=== PATIENT | male | born 1955 | race Caucasian/White ===

== ENCOUNTER 2017-02-15 21:41 | Emergency (ER) | payer OTHER ==
[~2017-02-15] VITALS: Ht 177.8 cm; Wt 72.5 kg
[~2017-02-15 21:41] MED LIST: HYDR-3720 PO; LAMI1TAB2 PO; [UNRECOGNIZED DRUG - CODE] PO
[2017-02-15 21:55] VITALS: Ht 177.8 cm; Wt 72.5 kg
[2017-02-15] MEDS ORDERED: DIPHTH/TET/ACEL PERTUSS (ADULT) 0.5 ML VIAL IM* ONE (23:00)
[2017-02-15] MEDS ORDERED: CEFAZOLIN 1 GM INJ IM ONE (23:00)
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
--- NOTE | 2017-02-16 00:42 | RADRPT ---
PROCEDURE: XR Wrist. CLINICAL INDICATION: Right wrist pain. TECHNIQUE: AP, lateral, scaphoid and oblique views of the right wrist were performed. COMPARISON: No prior studies are available for comparison. FINDINGS: Reference marker is directed to the lateral aspect of the right wrist, without evident underlying ra diographic abnormality. No evidence of fracture, dislocation, or subluxation is seen. The bones appear well mineralized. The joint spaces are well preserved. The soft tissues appear intact. IMPRESSION: No acute fracture. RPTAT: [facility] Physician Ad Date Time Electronically viewed and signed by Physician Ad on 02/16/2017 00:42 RS/
[2017-02-16] MEDS ORDERED: CEPH-443 PO (01:00)
[2017-02-16] MEDS ORDERED: IBUP-1542 PO (01:00)
[2017-02-16 01:30] VITALS: BP 113/61; PULSE 78; RESP 16
== END 2017-02-16 01:31 | disposition home or self-care (01) ==
LOC: FTE 21:41
DX: S60.811A Abrasion of right wrist, initial encounter (principal); L08.9 Local infection of the skin and subcutaneous tissue, unspecified; S63.501A Unspecified sprain of right wrist, initial encounter; V18.4XXA Pedal cycle driver injured in noncollision transport accident in traffic accident, initial encounter; Z23 Encounter for immunization
CPT/HCPCS: 29125; 73110; 90471; 90715; 96372; 99284; J0690

== ENCOUNTER 2017-03-15 11:38 | Emergency (ER) | payer OTHER ==
[~2017-03-15] VITALS: Ht 177.8 cm; Wt 71.0 kg
[~2017-03-15 11:38] MED LIST changes: +CEPH-443 PO; +IBUP-1542 PO
[2017-03-15 11:41] VITALS: Ht 177.8 cm; Wt 71.0 kg
[2017-03-15] MEDS ORDERED: HYDROCODONE/APAP (5/325) TAB PO ONE (13:00)
--- NOTE | 2017-03-15 13:47 | RADRPT ---
PROCEDURE: XR right rib series. CLINICAL INDICATION: Right rib pain, injury. TECHNIQUE: Three views of the right rib cage are available for review COMPARISON: None available FINDINGS: No acute fracture or dislocation is seen. The joint spaces are maintained. The bony mineralization is normal. The soft tissues are unremarkable. No radiopaque foreign body is identified. The visualized portions of the underlying lung is clear. No pneumothorax identified. IMPRESSION: 1. Unremarkable right rib cage x-ray series. RPTAT: QQ .Jared Lara MD, MD Date Time Electronically viewed and signed by .Jared Lara MD, MD on 03/15/2017 13:46 .M/
--- NOTE | 2017-03-15 13:47 | RADRPT ---
PROCEDURE: XR Chest. CLINICAL INDICATION: Chest pain, injury TECHNIQUE: Anterior chest x-ray. COMPARISON: None. FINDINGS: The lungs are clear. No pleural effusion identified. There is no evidence of pneumothorax. The cardiomediastinal silhouette is unremarkable. The soft tissues are normal. Osseous structures are unremarkable. IMPRESSION: 1. No acute disease is seen in the chest. RPTAT: QQ .Jared Lara MD, MD Date Time Electronically viewed and signed by .Jared Lara MD, on 03/15/2017 13:47 .M/
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
[2017-03-15] MEDS ORDERED: NAPR-260 PO (13:54)
[2017-03-15] MEDS ORDERED: ACET500C5 PO (13:54)
== END 2017-03-15 14:15 | disposition home or self-care (01) ==
LOC: FTE 11:38
DX: R07.81 Pleurodynia (principal)
CPT/HCPCS: 71010; 71100

== ENCOUNTER 2017-03-26 09:18 | Emergency (ER) | payer OTHER ==
[~2017-03-26] VITALS: Ht 175.3 cm; Wt 70.0 kg
[~2017-03-26 09:18] MED LIST changes: +ACET500C5 PO; +NAPR-260 PO
[2017-03-26 09:21] VITALS: Ht 175.3 cm; Wt 70.0 kg
--- NOTE | 2017-03-26 09:37 | ERD ---
ER Documentation Chief Complaint Date/Time DATE: 03/26/17 TIME: 09:36 Chief Complaint left knee pain x 3 days HPI This is a 61-year-old male presents to the emergency room for evaluation of left -sided knee pain. The patient states he has had his knee pain for approximately 2 days duration. He states that 2 days ago he was praying for a prolonged period of time and was putting pressure on his left knee. The patient states that he started having some pain and swelling and states that he took Naprosyn and stated the pain and swelling had decreased however he came to the ER for evaluation. The patient denies any direct trauma to the knee and states that he is having no difficulty walking. The patient denies any fevers or chills associated with this knee pain ROS All systems reviewed and are negative except as per history of present illness. Medications Home Meds Active Scripts Acetaminophen* (Tylophen*) 500 Mg Capsule, 1 CAP PO Q6H Y for PAIN AND OR ELEVATED TEMP, #30 CAP Prov:YOU DOMINGUEZ PA-C 03/15/17 Naproxen* (Naprosyn*) 500 Mg Tablet, 500 MG PO BID Y for PAIN AND/OR INFLAMMATION, #30 TAB Prov:YOU DOMINGUEZ PA-C 03/15/17 Cephalexin* (Keflex*) 500 Mg Capsule, 500 MG PO QID for 5 Days, CAP Prov:RACHAEL BAKER TOPPIECE CHOPPER 02/16/17 Ibuprofen* (Motrin*) 600 Mg Tab, 600 MG PO Q6H Y for PAIN AND OR ELEVATED TEMP, #30 TAB Prov:RACHAEL BAKER TOPPIECE CHOPPER 02/16/17 Reported Medications Hydrocodone Bit-Acetaminophen* ([place]*) 7.5-325 Tablet, 1 TAB PO BID Y for PAIN , TAB 03/06/16 Nevirapine* (Viramune*) 200 Mg Tablet, 200 MG PO BID, TAB 03/06/16 Lamivudine-Zidovudine* (Combivir*) 150-300 Mg Tablet, 1 TAB PO BID, TAB 03/06/16 Allergies Allergies: Coded Allergies: No Known Allergy (Unverified , 03/06/16) PMhx/Soc History of Surgery: Yes (left hernia repair) Anesthesia Reaction: No Hx Neurological Disorder: No Hx Respiratory Disorders: No Hx Cardiac Disorders: No Hx Psychiatric Problems: No Hx Miscellaneous Medical Probl: Yes (hiv, rheumatoid arthritis , spinal stenosis) Hx Alcohol Use: No Hx Substance Use: No (clean 13 years) Hx Tobacco Use: No Physical Exam Vitals Vital Signs Date Time Temp Pulse Resp B/P Pulse Ox O2 Delivery O2 Flow Rate FiO2 03/26/17 09:21 98.3 64 18 133/98 100 Physical Exam Const: No acute distress Head: Atraumatic Eyes: Normal Conjunctiva ENT: Normal External Ears, Nose and Mouth. Neck: Full range of motion..~ No meningismus. Resp: Clear to auscultation bilaterally Cardio: Regular rate and rhythm, no murmurs Abd: Soft, non tender, non distended. Normal bowel sounds Skin: No petechiae or rashes Back: No midline or flank tenderness Ext: No swelling, no erythema no cyanosis, or edema Neur: Awake and alert Psych: Normal Mood and Affect Procedures/MDM This 61-year-old male presents to the ER for evaluation of left-sided knee pain. The patient was playing 2 days ago and states that he was playing for a prolonged period of time. I did not know any swelling in the knee. The patient is ambulating without difficulty, he has no fevers, my suspicion for septic arthritis is low. Patient was given Motrin in the emergency room and instructed to keep his leg elevated, and ice his knee. The patient did verbalize understanding. He is okay the plan of care and will be discharged home with a prescription for Motrin. Departure Diagnosis: Primary Impression: Knee pain Condition: Stable ERICKSON GUTHRIE DO March 26, 2017 09:37
[2017-03-26] MEDS ORDERED: IBUP800T25 PO (09:38)
[2017-03-26] MEDS ORDERED: IBUPROFEN 800 MG TAB PO ONE (10:00)
== END 2017-03-26 09:54 | disposition home or self-care (01) ==
LOC: FTE 09:18
DX: M25.562 Pain in left knee (principal)
CPT/HCPCS: 99283

== ENCOUNTER 2017-03-29 19:03 | Emergency (ER) | payer OTHER ==
[~2017-03-29] VITALS: Ht 175.3 cm; Wt 70.5 kg
[~2017-03-29 19:03] MED LIST changes: +IBUP800T25 PO
[2017-03-29 19:23] VITALS: Ht 175.3 cm; Wt 70.5 kg
[2017-03-29] MEDS ORDERED: SOD CHLORIDE 0.9% 1,000 ML IV STA (19:46)
[2017-03-29] MEDS ORDERED: ONDANSETRON 4 MG INJ IV STA (19:46)
[2017-03-29] MEDS ORDERED: morphine 2 MG INJ IV STA (19:46)
[2017-03-29 19:53] LABS: URINE BLOOD (Dip) POC Negative (NEGATIVE)
--- NOTE | 2017-03-29 20:05 | ERD ---
ER Documentation Chief Complaint Date/Time DATE: 03/29/17 TIME: 20:03 Chief Complaint knee pain and redness x2 days, dx with bursitis, HPI 61-year-old male presents to emergency department for complaints of left knee pain that started 3 days ago, patient was seen in the emergency department was diagnosed as bursitis, today, the pain got worse, redness and swelling spread into the lower extremity area right below the knee, described the pain on affected areas throbbing pain, 8/10 scale, worse upon touching the area, patient is able to move the knee without any induration. Patient denies any numbness or tingling. Patient denies any deformity. Patient denies any trauma on affected area. ROS All systems reviewed and are negative except as per history of present illness. Medications Home Meds Active Scripts Ibuprofen* (Motrin*) 800 Mg Tab, 800 MG PO Q6H Y for PAIN AND OR ELEVATED TEMP, #30 TAB Prov:ERICKSON GUTHRIE DO 03/26/17 Acetaminophen* (Tylophen*) 500 Mg Capsule, 1 CAP PO Q6H Y for PAIN AND OR ELEVATED TEMP, #30 CAP Prov:YOU DOMINGUEZ PA-C 03/15/17 Naproxen* (Naprosyn*) 500 Mg Tablet, 500 MG PO BID Y for PAIN AND/OR INFLAMMATION, #30 TAB Prov:YOU DOMINGUEZ PA-C 03/15/17 Cephalexin* (Keflex*) 500 Mg Capsule, 500 MG PO QID for 5 Days, CAP Prov:RACHAEL BAKER [employer]QUA [employer] OPERATOR 02/16/17 Ibuprofen* (Motrin*) 600 Mg Tab, 600 MG PO Q6H Y for PAIN AND OR ELEVATED TEMP, #30 TAB Prov:RACHAEL BAKER [employer] OPERATOR 02/16/17 Reported Medications Hydrocodone Bit-Acetaminophen* (Zavalla*) 7.5-325 Tablet, 1 TAB PO BID Y for PAIN , TAB 03/06/16 Nevirapine* (Viramune*) 200 Mg Tablet, 200 MG PO BID, TAB 03/06/16 Lamivudine-Zidovudine* (Combivir*) 150-300 Mg Tablet, 1 TAB PO BID, TAB 03/06/16 Allergies Allergies: Coded Allergies: No Known Allergy (Unverified , 03/06/16) PMhx/Soc History of Surgery: Yes (inguinal sx) Anesthesia Reaction: No Hx Neurological Disorder: No Hx Respiratory Disorders: No Hx Cardiac Disorders: No Hx Psychiatric Problems: No Hx Miscellaneous Medical Probl: Yes (HIV) Hx Alcohol Use: Yes Hx Substance Use: No Hx Tobacco Use: No Smoking Status: Never smoker FmHx Family History: No coronary disease, No diabetes, No other Physical Exam Vitals Vital Signs Date Time Temp Pulse Resp B/P Pulse Ox O2 Delivery O2 Flow Rate FiO2 03/29/17 19:23 98.2 64 20 170/87 97 Physical Exam GENERAL: The patient is well developed and appropriate for usual state of health, in no apparent distress. CHEST: Clear to auscultation bilaterally. There are no rales, wheezes or rhonchi. HEART: Regular rate and rhythm. No murmurs, clicks, rubs or gallops. No S3 or S4. ABDOMEN: Soft, nontender and nondistended. Good bowel sounds. No rebound or guarding. No gross peritonitis. No gross organomegaly or masses. No Guadarrama sign or McBurney point tenderness. BACK: No midline or flank tenderness. EXTREMITIES: Noted redness and swelling swelling on the prepatellar aspect the left knee, noted redness and swelling of the left lower leg, negative Homans sign. Equal pulses bilaterally. Able to do full range of motion of the left knee without any restriction. Grossly neurovascularly intact. NEURO: Alert and oriented. Cranial nerves 2-12 intact. Motor strength in all 4 extremities with 5/5 strength. Sensation grossly intact. Normal speech and gait. SKIN: There is no apparent rash or petechia. The skin is warm and dry. HEMATOLOGIC AND LYMPHATIC: There is no evidence of excessive bruising or lymphedema. No gross cervical, axillary, or inguinal lymphadenopathy. Result Diagram: 03/29/17195403/29/171954 Results 24 hrs Laboratory Tests Test 03/29/17 19:48 03/29/17 19:54 03/29/17 19:55 Urine Color LT. YELLOW Urine Clarity CLEAR Urine pH 6.0 Urine Specific [place] 1.015 Urine Ketones NEGATIVE Urine Nitrite NEGATIVE Urine Bilirubin NEGATIVE Urine Urobilinogen 0.2 E.U./dL Urine Leukocyte Esterase NEGATIVE Urine Hemoglobin NEGATIVE Urine Glucose NEGATIVE% Urine Total Protein NEGATIVE Bedside Urine pH (LAB) 6.5 Bedside Urine Protein (LAB) Negative Bedside Urine Glucose (UA) Negative Bedside Urine Ketones (LAB) Negative Bedside Urine Blood Negative Bedside Urine Nitrite (LAB) Negative Bedside Urine Leukocyte Esterase (L Negative White Blood Count 11.810^3/ul Red Blood Count 3.4610^6/ul Hemoglobin 13.7g/dl Hematocrit 39.7% Mean Corpuscular Volume 114.7fl Mean Corpuscular Hemoglobin 39.6pg Mean Corpuscular Hemoglobin Concent 34.5g/dl Red Cell Distribution Width 14.4% Platelet Count 67753^3/UL Mean Platelet Volume 9.7fl Neutrophils % 81.6% Lymphocytes % 9.9% Monocytes % 6.9% Eosinophils % 0.8% Basophils % 0.3% Nucleated Red Blood Cells % 0.0/100WBC Neutrophils # 9.610^3/ul Lymphocytes # 1.210^3/ul Monocytes # 0.810^3/ul Eosinophils # 0.110^3/ul Basophils # 0.010^3/ul Nucleated Red Blood Cells # 0.010^3/ul Erythrocyte Sedimentation Rate 19mm/Hr Sodium Level 137mmol/L Potassium Level 3.6mmol/L Chloride Level 99mmol/L Carbon Dioxide Level 28mmol/L Anion Gap 14 Blood Urea Nitrogen 22mg/dl Creatinine 0.86mg/dl Glucose Level 111mg/dl Lactic Acid Level 1.4mmol/L Uric Acid 4.0mg/dl Calcium Level 8.9mg/dl Total Bilirubin 0.2mg/dl Direct Bilirubin 0.00mg/dl Indirect Bilirubin 0.2mg/dl Aspartate Amino Transf (AST/SGOT) 38IU/L Alanine Aminotransferase (ALT/SGPT) 34IU/L Alkaline Phosphatase 137IU/L C-Reactive Protein 3.2mg/dl Total Protein 7.2g/dl Albumin 3.7g/dl Globulin 3.50g/dl Albumin/Globulin Ratio 1.05 Lipase 132U/L Current Medications Medications (Trade) Dose Ordered Sig/Yumi Route PRN Reason Start Time Stop Time Status Last Admin Dose Admin Sodium Chloride (NS) 1,000 ml @ 1,000 mls/hr Q1H STAT IV 03/29/17 19:46 03/29/17 20:45 DC 03/29/17 20:22 Morphine Sulfate (morphine) 2 mg ONCE STAT IV 03/29/17 19:46 5/14/17 19:49 DC 03/29/17 20:23 Ondansetron HCl 4 mg 4 mg ONCE STAT IV 03/29/17 19:46 03/29/17 19:49 DC 03/29/17 20:23 Vancomycin HCl (Vancocin) 250 ml @ 125 mls/hr ONCE IVPB 03/29/17 20:30 03/29/17 22:29 03/29/17 20:23 Patient was given medication for pain here in emergency department, after treatment, patient verbalized feeling much better. Patient's pain is improved. Patient was given Zofran here in the emergency department. After treatment, patient was able to tolerate po fluids here in the emergency department without any vomiting. There is no signs and symptoms of dehydration. Normal saline IV bolus was given here in emergency department for rehydration, patient tolerated IV fluids. PROCEDURE: Ultrasound of the left lower extremity venous system. CLINICAL INDICATION: Left leg pain and swelling, deep venous thrombosis TECHNIQUE: Curry scale with and without compression, color doppler, spectral doppler of the venous system of the left lower extremity was performed. Venous augmentation maneuvers were utilized. COMPARISON: No prior studies are available for comparison. FINDINGS: Common femoral vein: Patent. Femoral vein: Patent. Popliteal vein: Patent. Calf veins: Patent. No soft tissue abnormalities are identified. IMPRESSION: No evidence of a deep vein thrombosis within the left lower extremity. RPTAT: AADD .Fer Eason MD, MD Date Time Electronically viewed and signed by .Fer Eason MD, on 03/29/2017 20:41 .B/ CC: RACHAEL BAKER NP PROCEDURE: Left knee pain and redness. CLINICAL INDICATION: Pain, redness and swelling in the left knee. TECHNIQUE: 3 views of the left knee. COMPARISON: None FINDINGS: No acute fracture dislocation. Small amount of joint fluid is nonspecific. Soft tissues otherwise unremarkable. IMPRESSION: No acute fracture. RPTAT: [facility] Physician Ad Date Time Electronically viewed and signed by Physician Ad on 03/29/2017 21:26 RS/ CC: RACHAEL BAKER AQUA AMMONIA OPERATOR Procedures/MDM Medical Decision Making: Patient's pain is most likely consistent cellulitis, also left knee bursitis. Low suspicion for septic arthritis at this time, ESR is normal, able to do full range of motion of the left knee without any restriction. Dr. Lugo evaluated this patient with me, recommends giving IV vancomycin, to send patient home with Bactrim and Keflex, or return in 2 days for reevaluation of symptoms. Okay for outpatient management at this time. Patient appears well and is hemodynamically stable.. There is no suspicion for neurovascular compromise. Patient has intact sensation and circulation of the affected extremity. There is low suspicion for septic arthritis. Patient does not have any fever. Radiology exams of the affected area does not show any fracture or dislocation. Low suspicion for DVT, ultrasound does not show any DVT. Disposition: Home. Patient is given prescription for Zavalla for severe pain, Bactrim and Keflex. Patient was advised to elevate the affected area and apply ice on affected area. Patient was advised that if symptoms are worse, numbness , tingling, high fever, unable to move joint, worsening symptoms, to return to emergency department immediately. Otherwise, patient is advised to follow up with here in emergency Department in 2 days for reevaluation of symptoms. Departure Diagnosis: Primary Impression: Knee bursitis Knee bursitis location: prepatellar bursitis Laterality: left Qualified Code: M70.42 - Prepatellar bursitis of left knee Additional Impression: Cellulitis Site of cellulitis: extremity Site of cellulitis of extremity: lower extremity Laterality: left Qualified Code: L03.116 - Cellulitis of left lower extremity Condition: Stable Patient Instructions: Bursitis, Cellulitis Additional Instructions: Patient is given prescription for Zavalla for severe pain, Bactrim and Keflex. Patient was advised to elevate the affected area and apply ice on affected area. Patient was advised that if symptoms are worse, numbness, tingling, high fever, unable to move joint, worsening symptoms, to return to emergency department immediately. Otherwise, patient is advised to follow up with here in emergency Department in 2 days for reevaluation of symptoms. RACHAEL BAKER NP March 29, 2017 20:05
[2017-03-29 20:14] LABS: ADD SCAN DIFF NO
[2017-03-29 20:16] LABS: BASOPHILS % 0.3 % (0.0-2.0); EOSINOPHILS # 0.1 10^3/ul (0.0-0.5); EOSINOPHILS % 0.8 % (0.0-7.0); HEMATOCRIT 39.7 % (42.0-52.0); HEMOGLOBIN 13.7 g/dl (14.0-18.0); LYMPHOCYTES # 1.2 10^3/ul (0.8-2.9); LYMPHOCYTES % 9.9 % (15.0-51.0); MEAN CORPUSCULAR HEMOGLOBIN 39.6 pg (29.0-33.0); MEAN CORPUSCULAR HGB CONC 34.5 g/dl (32.0-37.0); MEAN CORPUSCULAR VOLUME 114.7 fl (82.0-101.0); MEAN PLATELET VOLUME 9.7 fl (7.4-10.4); MONOCYTE # 0.8 10^3/ul (0.3-0.9); MONOCYTES % 6.9 % (0.0-11.0); NEUTROPHIL # 9.6 10^3/ul (1.6-7.5); NEUTROPHILS % 81.6 % (39.0-77.0); PLATELET COUNT 210 10^3/UL (140-415); RED BLOOD COUNT 3.46 10^6/ul (4.70-6.10); RED CELL DISTRIBUTION WIDTH 14.4 % (11.5-14.5); WHITE BLOOD COUNT 11.8 10^3/ul (4.8-10.8)
[2017-03-29 20:18] LABS: ADD UMIC NO; URINE BILIRUBIN (Dip) NEGATIVE (NEGATIVE); URINE BLOOD (Dip) NEGATIVE (NEGATIVE); URINE COLOR LT. YELLOW (YELLOW); URINE GLUCOSE (Dip) NEGATIVE (NEGATIVE); URINE KETONES (Dip) NEGATIVE (NEGATIVE); URINE LEUKOCYTE ESTERASE (Dip) NEGATIVE (NEGATIVE); URINE NITRITE (Dip) NEGATIVE (NEGATIVE); URINE TOTAL PROTEIN (Dip) NEGATIVE (NEGATIVE); URINE UROBILINOGEN (Dip) 0.2 E.U./dL (0.1-1.0)
[2017-03-29] MEDS ORDERED: VANCOMYCIN 1 GM (PMX) 250 ML IVPB SCH (20:30)
[2017-03-29 20:35] LABS: ALBUMIN 3.7 g/dl (3.3-4.9)
[2017-03-29 20:36] LABS: POTASSIUM 3.6 mmol/L (3.5-5.1)
[2017-03-29 20:38] LABS: CREATININE 0.86 mg/dl (0.61-1.24)
[2017-03-29 20:39] LABS: ALBUMIN/GLOBULIN RATIO 1.05; BILIRUBIN,INDIRECT 0.2 mg/dl (0-1.1); BILIRUBIN,TOTAL 0.2 mg/dl (0.2-1.3); CALCIUM 8.9 mg/dl (8.4-10.2); TOTAL PROTEIN 7.2 g/dl (6.1-8.1)
[2017-03-29 20:41] LABS: C-REACTIVE PROTEIN 3.2 mg/dl (0.0-0.9)
--- NOTE | 2017-03-29 20:41 | RADRPT ---
PROCEDURE: Ultrasound of the left lower extremity venous system. CLINICAL INDICATION: Left leg pain and swelling, deep venous thrombosis TECHNIQUE: Curry scale with and without compression, color doppler, spectral doppler of the venous system of the left lower extremity was performed. Venous augmentation maneuvers were utilized. COMPARISON: No prior studies are available for comparison. FINDINGS: Common femoral vein: Patent. Femoral vein: Patent. Popliteal vein: Patent. Calf veins: Patent. No soft tissue abnormalities are identified. IMPRESSION: No evidence of a deep vein thrombosis within the left lower extremity. RPTAT: AADD .Fer Eason MD, MD Date Time Electronically viewed and signed by .Fer Eason MD, on 03/29/2017 20:41 .B/
--- NOTE | 2017-03-29 21:26 | RADRPT ---
PROCEDURE: Left knee pain and redness. CLINICAL INDICATION: Pain, redness and swelling in the left knee. TECHNIQUE: 3 views of the left knee. COMPARISON: None FINDINGS: No acute fracture dislocation. Small amount of joint fluid is nonspecific. Soft tissues otherwise unremarkable. IMPRESSION: No acute fracture. RPTAT: [facility] Physician Ad Date Time Electronically viewed and signed by Dwain Caldera Physician on 03/29/2017 21:26 RS/
[2017-03-29] MEDS ORDERED: CEPH-443 PO (21:33)
[2017-03-29] MEDS ORDERED: SULF1TAB31 PO (21:33)
[2017-03-29] MEDS ORDERED: HYDR-906 PO (21:33)
[2017-03-29 23:15] VITALS: BP 140/68; PULSE 68; RESP 17
== END 2017-03-29 23:18 | disposition home or self-care (01) ==
LOC: FTE 19:03
DX: M70.42 Prepatellar bursitis, left knee (principal); L03.116 Cellulitis of left lower limb; Y93.9 Activity, unspecified
CPT/HCPCS: 36415; 73562; 80053; 81003; 83605; 83690; 84560; 85025; 85651; 86140; 87040; 93971; 96365; 96366; 96375; 99285; J2270; J2405; J3370; J7030

== ENCOUNTER 2017-04-22 18:50 | Emergency (ER) | payer OTHER ==
[~2017-04-22] VITALS: Ht 177.8 cm; Wt 74.0 kg
[~2017-04-22 18:50] MED LIST changes: +HYDR-906 PO; +SULF1TAB31 PO
[2017-04-22 18:54] VITALS: Ht 177.8 cm; Wt 74.0 kg
[2017-04-22] MEDS ORDERED: SULF1TAB31 PO ×2 (19:37)
[2017-04-22] MEDS ORDERED: CEPH-443 PO (19:37)
--- NOTE | 2017-04-23 00:11 | ERA ---
ER Documentation Chief Complaint Date/Time DATE: 04/23/17 TIME: 00:08 Chief Complaint sp spider bite left hip w/ lesion HPI Patient presents with a chief complaint of insect bite wound. Patient denies fever, GI symptoms, urological symptoms, discharge. Patient denies any alleviating factors. Patient states that touching it makes the pain worse. ROS All systems reviewed and are negative except as per history of present illness. Medications Home Meds Active Scripts Sulfamethoxazole/Trimethoprim* (Bactrim Ds* Tablet) 1 Each Tablet, 1 TAB PO BID for 5 Days, TAB Prov:TONY SALINAS PA-C 04/22/17 Sulfamethoxazole/Trimethoprim* (Bactrim Ds* Tablet) 1 Each Tablet, 1 TAB PO DAILY, #7 TAB Prov:TONY SALINAS PA-C 04/22/17 Cephalexin* (Keflex*) 500 Mg Capsule, 500 MG PO QID for 5 Days, CAP Prov:TONY SALINAS PA-C 04/22/17 Hydrocodone/Acetaminophen ([place] 5-325 Tablet) 1 Each Tablet, 1 TAB PO Q6H Y for SEVERE PAIN LEVEL 7-10, #20 TAB Prov:RACHAEL BAKER NP 03/29/17 Cephalexin* (Keflex*) 500 Mg Capsule, 500 MG PO QID for 10 Days, CAP Prov:RACHAEL BAKER AIRCRAFT SERVICER 03/29/17 Sulfamethoxazole/Trimethoprim* (Bactrim Ds* Tablet) 1 Each Tablet, 1 TAB PO BID , #20 TAB Prov:RACHAEL BAKER NP 03/29/17 Ibuprofen* (Motrin*) 800 Mg Tab, 800 MG PO Q6H Y for PAIN AND OR ELEVATED TEMP, #30 TAB Prov:ERICKSON GUTHRIE DO 03/26/17 Acetaminophen* (Tylophen*) 500 Mg Capsule, 1 CAP PO Q6H Y for PAIN AND OR ELEVATED TEMP, #30 CAP Prov:YOU DOMINGUEZ PA-C 03/15/17 Naproxen* (Naprosyn*) 500 Mg Tablet, 500 MG PO BID Y for PAIN AND/OR INFLAMMATION, #30 TAB Prov:YOU DOMINGUEZ PA-C 03/15/17 Cephalexin* (Keflex*) 500 Mg Capsule, 500 MG PO QID for 5 Days, CAP Prov:BOLA BAKEROmar Bustos AIRCRAFT SERVICER 02/16/17 Ibuprofen* (Motrin*) 600 Mg Tab, 600 MG PO Q6H Y for PAIN AND OR ELEVATED TEMP, #30 TAB Prov:RACHAEL BAKERAjay AIRCRAFT SERVICER 02/16/17 Reported Medications Hydrocodone Bit-Acetaminophen* ([place]immell*) 7.5-325 Tablet, 1 TAB PO BID Y for PAIN , TAB 03/06/16 Nevirapine* (Viramune*) 200 Mg Tablet, 200 MG PO BID, TAB 03/06/16 Lamivudine-Zidovudine* (Combivir*) 150-300 Mg Tablet, 1 TAB PO BID, TAB 03/06/16 Allergies Allergies: Coded Allergies: No Known Allergy (Unverified , 03/06/16) PMhx/Soc History of Surgery: Yes (inguinal sx) Anesthesia Reaction: No Hx Neurological Disorder: No Hx Respiratory Disorders: No Hx Cardiac Disorders: No Hx Psychiatric Problems: No Hx Miscellaneous Medical Probl: Yes (HIV) Hx Alcohol Use: Yes Hx Substance Use: No Hx Tobacco Use: No Physical Exam Vitals Vital Signs Date Time Temp Pulse Resp B/P Pulse Ox O2 Delivery O2 Flow Rate FiO2 04/22/17 18:54 97.5 67 20 150/70 99 Physical Exam Const: Well-developed 7-year-old male Head: Atraumatic Eyes: Normal Conjunctiva ENT: Normal External Ears, Nose and Mouth. Neck: Full range of motion..~ No meningismus. Resp: Clear to auscultation bilaterally Cardio: Regular rate and rhythm, no murmurs Abd: Soft, non tender, non distended. Normal bowel sounds Skin: No petechiae or rashes. 7 cm round with 1 to 3 cm diameter induration around center of erythema on the lateral mid region of the left gluteus mandy muscle. Back: No midline or flank tenderness Ext: No cyanosis, or edema Neur: Awake and alert Psych: Normal Mood and Affect Procedures/MDM Patient presents with signs and symptoms consistent with a noninfectious insect bite. Patient has however developed possible cellulitis in the area. At this time I have very little suspicion for bacteremia, lymphangitis or other serious bacterial infection. Patient's vitals are stable and his current condition is appropriate for discharge. I will discharge patient at this time with discharge instructions and return precautions. Departure Diagnosis: Primary Impression: Insect bite Qualified Code: W57.XXXA - Insect bite, initial encounter Additional Impression: Bite wound Condition: Stable Patient Instructions: Spider Bite, Non-Poisonous Additional Instructions: Follow up with your PCP within the next 1-3 days for a more thorough evaluation and a possible referral to a specialist. Return the the emergency department immediately if symptoms worsen or change. If you have any questions regarding medications, ask your pharmacist or us before you leave. If any adverse reactions occur while taking your medications, discontinue the treatment and return to the emergency department immediately. Take your medications as directed, and complete the entire course of treatment. TONY SALINAS PA-C Apr 23, 2017 00:11
== END 2017-04-22 19:51 | disposition home or self-care (01) ==
LOC: FTE 18:50
DX: S70.262A Insect bite (nonvenomous), left hip, initial encounter (principal); W57.XXXA Bitten or stung by nonvenomous insect and other nonvenomous arthropods, initial encounter; Y92.9 Unspecified place or not applicable
CPT/HCPCS: 99284

== ENCOUNTER 2017-09-27 07:36 | Emergency (ER) | payer OTHER ==
[~2017-09-27] VITALS: Ht 172.7 cm; Wt 76.0 kg
[2017-09-27 07:39] VITALS: Ht 172.7 cm; Wt 76.0 kg
[2017-09-27] MEDS ORDERED: SOD CHLORIDE 0.9% 1,000 ML IV STA (08:17)
--- NOTE | 2017-09-27 09:08 | ERD ---
ER Documentation Chief Complaint Chief Complaint Pt with constipation and blood in stool x 2 days. HPI This is a 61-year-old male presenting to the emergency department with intermittent constipation, diarrhea and blood in stool. Patient states yesterday he had constipation and after having a bowel movement, he patient developed many episodes of bloody loose stool. Patient states he called the ambulance yesterday and was told to rest at home. Patient states he is feeling better today. Denies abdominal pain, vomiting or diarrhea. No flank or back pain. No pelvic pain. Patient states he continues to have blood in stool. No fevers or chills. ROS All systems reviewed and are negative except as per history of present illness. Medications Home Meds Active Scripts Metronidazole* (Flagyl*) 500 Mg Tablet, 500 MG PO TID for 10 Days, TAB Prov:KASSANDRA STROUD NP 09/27/17 Ciprofloxacin Hcl* (Ciprofloxacin Hcl*) 500 Mg Tablet, 500 MG PO BID for 10 Days , TAB Prov:KASSANDRA STROUD NP 09/27/17 Sulfamethoxazole/Trimethoprim* (Bactrim Ds* Tablet) 1 Each Tablet, 1 TAB PO BID for 5 Days, TAB Prov:TONY SALINAS PA-C 04/22/17 Sulfamethoxazole/Trimethoprim* (Bactrim Ds* Tablet) 1 Each Tablet, 1 TAB PO DAILY, #7 TAB Prov:TONY SALINAS PA-C 04/22/17 Cephalexin* (Keflex*) 500 Mg Capsule, 500 MG PO QID for 5 Days, CAP Prov:TONY SALINAS PA-C 04/22/17 Hydrocodone/Acetaminophen ([place] 5-325 Tablet) 1 Each Tablet, 1 TAB PO Q6H Y for SEVERE PAIN LEVEL 7-10, #20 TAB Prov:RACHAEL BAKER NP 03/29/17 Cephalexin* (Keflex*) 500 Mg Capsule, 500 MG PO QID for 10 Days, CAP Prov:RACHAEL BAKER NP 03/29/17 Sulfamethoxazole/Trimethoprim* (Bactrim Ds* Tablet) 1 Each Tablet, 1 TAB PO BID , #20 TAB Prov:RACHAEL BAKER NP 03/29/17 Ibuprofen* (Motrin*) 800 Mg Tab, 800 MG PO Q6H Y for PAIN AND OR ELEVATED TEMP, #30 TAB Prov:ERICKSON GUTHRIE 03/26/17 Acetaminophen* (Tylophen*) 500 Mg Capsule, 1 CAP PO Q6H Y for PAIN AND OR ELEVATED TEMP, #30 CAP Prov:YOU DOMINGUEZ PA-C 03/15/17 Naproxen* (Naprosyn*) 500 Mg Tablet, 500 MG PO BID Y for PAIN AND/OR INFLAMMATION, #30 TAB Prov:YOU DOMINGUEZ PA-C 03/15/17 Cephalexin* (Keflex*) 500 Mg Capsule, 500 MG PO QID for 5 Days, CAP Prov:RACHAEL BAKER MANAGER ER 02/16/17 Ibuprofen* (Motrin*) 600 Mg Tab, 600 MG PO Q6H Y for PAIN AND OR ELEVATED TEMP, #30 TAB Prov:RACHAEL BAKER MANAGER ER 02/16/17 Reported Medications Hydrocodone Bit-Acetaminophen* (Bulpitt*) 7.5-325 Tablet, 1 TAB PO BID Y for PAIN , TAB 03/06/16 Nevirapine* (Viramune*) 200 Mg Tablet, 200 MG PO BID, TAB 03/06/16 Lamivudine-Zidovudine* (Combivir*) 150-300 Mg Tablet, 1 TAB PO BID, TAB 03/06/16 Allergies Allergies: Coded Allergies: No Known Allergy (Unverified , 03/06/16) PMhx/Soc History of Surgery: Yes (inguinal sx) Anesthesia Reaction: No Hx Neurological Disorder: No Hx Respiratory Disorders: No Hx Cardiac Disorders: No Hx Psychiatric Problems: No Hx Miscellaneous Medical Probl: Yes (HIV) Hx Alcohol Use: Yes Hx Substance Use: No Hx Tobacco Use: No Smoking Status: Former smoker Physical Exam Vitals Vital Signs Date Time Temp Pulse Resp B/P Pulse Ox O2 Delivery O2 Flow Rate FiO2 09/27/17 11:51 98.6 81 17 125/67 99 Room Air 09/27/17 07:39 97.5 48 18 142/90 98 Physical Exam Const: No acute distress, alert. Head: Atraumatic Eyes: Normal Conjunctiva ENT: Normal External Ears, Nose and Mouth. Neck: Full range of motion..~ No meningismus. Resp: Clear to auscultation bilaterally Cardio: Regular rate and rhythm, no murmurs Abd: Soft, non tender, non distended. Normal bowel sounds. no McBurney point tenderness. No peritoneal signs. Negative Guadarrama sign. Skin: No petechiae or rashes Back: No midline or flank tenderness Ext: No cyanosis, or edema Neur: Awake and alert Psych: Normal Mood and Affect Result Diagram: 09/27/17 0854 09/27/17 0854 Results 24 hrs Laboratory Tests Test 09/27/17 08:42 09/27/17 08:54 09/27/17 09:20 Urine Color YELLOW Urine Clarity CLEAR Urine pH 5.0 Urine Specific Lyons 1.019 Urine Ketones NEGATIVEmg/dL Urine Nitrite NEGATIVEmg/dL Urine Bilirubin NEGATIVEmg/dL Urine Urobilinogen NEGATIVEmg/dL Urine Leukocyte Esterase NEGATIVELeu/ul Urine Hemoglobin NEGATIVEmg/dL Urine Glucose NEGATIVEmg/dL Urine Total Protein NEGATIVEmg/dl White Blood Count 7.410^3/ul Red Blood Count 3.7110^6/ul Hemoglobin 14.4g/dl Hematocrit 41.5% Mean Corpuscular Volume 111.9fl Mean Corpuscular Hemoglobin 38.8pg Mean Corpuscular Hemoglobin Concent 34.7g/dl Red Cell Distribution Width 13.8% Platelet Count 13730^3/UL Mean Platelet Volume 10.4fl Neutrophils % 63.0% Lymphocytes % 26.1% Monocytes % 9.0% Eosinophils % 1.1% Basophils % 0.3% Nucleated Red Blood Cells % 0.0/100WBC Neutrophils # 4.610^3/ul Lymphocytes # 1.910^3/ul Monocytes # 0.710^3/ul Eosinophils # 0.110^3/ul Basophils # 0.010^3/ul Nucleated Red Blood Cells # 0.010^3/ul Sodium Level 143mmol/L Potassium Level 4.1mmol/L Chloride Level 109mmol/L Carbon Dioxide Level 27mmol/L Anion Gap 11 Blood Urea Nitrogen 15mg/dl Creatinine 0.93mg/dl Glucose Level 98mg/dl Calcium Level 8.9mg/dl Total Bilirubin 0.3mg/dl Direct Bilirubin 0.00mg/dl Indirect Bilirubin 0.3mg/dl Aspartate Amino Transf (AST/SGOT) 28IU/L Alanine Aminotransferase (ALT/SGPT) 37IU/L Alkaline Phosphatase 84IU/L Total Protein 7.2g/dl Albumin 3.8g/dl Globulin 3.40g/dl Albumin/Globulin Ratio 1.11 Lipase 139U/L Stool Occult Blood POSITIVE Current Medications Medications (Trade) Dose Ordered Sig/Yumi Route PRN Reason Start Time Stop Time Status Last Admin Dose Admin Sodium Chloride (NS) 1,000 ml @ 1,000 mls/hr Q1H STAT IV 09/27/17 08:17 09/27/17 09:16 DC 09/27/17 08:47 Procedures/MDM DIAGNOSTIC IMAGING REPORT Patient: OH REARDON : 1955 Age: 61 Sex: M MR #: [id number] DOS: 09/27/17816 Ordering MD: KASSANDRA QUINN NP Location: [facility] Room/Bed: PROCEDURE: CT abdomen and pelvis without contrast. CLINICAL INDICATION: Abdominal pain. TECHNIQUE: CT scan of the abdomen and pelvis without contrast was performed on the multislice CT scanner. No intravenous contrast was administered. 3-D sagittal and coronal reformatted images were obtained from the axial source images. One or more of the following post reduction techniques were used: - Automated exposure control. - Adjustment of the mA and/or Kv according to patient's size. - Use of iterative reconstruction technique DLP 833.00 mGycm. CTDI vol 14.18 mGy COMPARISON: CT 01/26/2016 FINDINGS: The lung bases are clear. Evaluation of the solid organs is limited due to lack of intravenous contrast. The liver, spleen, adrenal glands, pancreas, gallbladder are normal. The kidneys are normal in size with no evidence of hydronephrosis. No kidney stones are visualized. Multiple hyperdense cysts in the left kidney measuring up to 1.5 cm, stable compared to prior study. Exophytic 1.2 cm cyst in the right kidney Mild aortoiliac atherosclerosis without ectasia. No ascites or retroperitoneal adenopathy. There is no free air or fluid. There is no bowel obstruction. Appendix is unremarkable. The urinary bladder is normal. No pelvic masses or pelvic lymphadenopathy seen. There is no acute osseous abnormality. RPTAT: AA IMPRESSION: No acute CT findings in the abdomen or pelvis. Multiple hyperdense left renal cysts, stable compared to prior exams. Further evaluation with dedicated non-emergent ultrasound may be obtained. MDM: This is a 61-year-old male presenting to the emergency department with Diarrhea and blood in stool 2 days. Patient is afebrile and vital signs are stable. Labs and urine ordered. CT abdomen and pelvis ordered. CBC shows no significant anemia or infection. CMP shows no significant electro imbalance. Normal creatinine BUN. Normal liver enzymes. Normal glucose. UA is negative for infection. Occult stool is positive. Patient denies abdominal pain. Patient states bleeding has diminished since being in the ER. No active vomiting. Consulted Dr. Chatman regarding this patient and we agree that patient is appropriate for outpatient management with urgent follow-up with GI specialist and colonoscopy with prescription for possible infection process. Discussed findings and plan of care with patient. Patient agrees and verbalizes understanding. Differential diagnosis includes but not limited to acute appendicitis, diverticulitis, diverticulosis, bowel obstruction, constipation, infectious colitis, irritable bowel syndrome, inflammatory bowel disease, viral gastroenteritis, abdominal aortic aneurysm, food intolerance, celiac disease, UTI, pyelonephritis, nephrolithiasis, acute urinary retention or colorectal cancer. I doubt any emergent conditions such as appendicitis, diverticulitis, bowel obstruction, abdominal aortic aneurysm at this time due to normal vital signs and normal lab results. Patient is appropriate for outpatient management. Instructed patient to return to the ED in 8 hours for abdominal pain recheck. Patient will be given prescription for Cipro and Flagyl. Instructed patient to follow-up with primary care provider in the next 2-3 days for reassessment and additional management. Return to ED for any high fever, chest pain, difficulty breathing, shortness breath, wheezing, vomiting, diarrhea, abdominal pain or any new or worsening symptoms. Patient verbalizes understanding. All questions answered at discharge. Disclaimer: Inadvertent spelling and grammatical errors are likely due to EHR/ dictation software use and do not reflect on the overall quality of patient care. Also, please note that the electronic time recorded on this note does not necessarily reflect the actual time of the patient encounter. Departure Diagnosis: Primary Impression: Hematochezia Condition: Stable KASSANDRA STROUD NP Sep 27, 2017 09:08
[2017-09-27 09:13] LABS: BASOPHILS % 0.3 % (0.0-2.0); EOSINOPHILS # 0.1 10^3/ul (0.0-0.5); EOSINOPHILS % 1.1 % (0.0-7.0); HEMATOCRIT 41.5 % (42.0-52.0); HEMOGLOBIN 14.4 g/dl (14.0-18.0); LYMPHOCYTES # 1.9 10^3/ul (0.8-2.9); LYMPHOCYTES % 26.1 % (15.0-51.0); MEAN CORPUSCULAR HEMOGLOBIN 38.8 pg (29.0-33.0); MEAN CORPUSCULAR HGB CONC 34.7 g/dl (32.0-37.0); MEAN CORPUSCULAR VOLUME 111.9 fl (82.0-101.0); MEAN PLATELET VOLUME 10.4 fl (7.4-10.4); MONOCYTE # 0.7 10^3/ul (0.3-0.9); NEUTROPHIL # 4.6 10^3/ul (1.6-7.5); PLATELET COUNT 175 10^3/UL (140-415); RED BLOOD COUNT 3.71 10^6/ul (4.70-6.10); RED CELL DISTRIBUTION WIDTH 13.8 % (11.5-14.5); WHITE BLOOD COUNT 7.4 10^3/ul (4.8-10.8)
[2017-09-27 09:21] LABS: ADD UMIC NO; UR ASCORBIC ACID 20 mg/dL (NEGATIVE); UR BILIRUBIN (Dip) NEGATIVE (NEGATIVE); UR BLOOD (Dip) NEGATIVE (NEGATIVE); UR CLARITY CLEAR (CLEAR); UR COLOR YELLOW (YELLOW); UR GLUCOSE (Dip) NEGATIVE (NEGATIVE); UR KETONES (Dip) NEGATIVE (NEGATIVE); UR LEUKOCYTE ESTERASE (Dip) NEGATIVE Leu/ul (NEGATIVE); UR NITRITE (Dip) NEGATIVE (NEGATIVE); UR SPECIFIC GRAVITY (Dip) 1.019 (1.003-1.030); UR TOTAL PROTEIN (Dip) NEGATIVE (NEGATIVE); UR UROBILINOGEN (Dip) NEGATIVE (NEGATIVE)
[2017-09-27 09:30] LABS: ALBUMIN 3.8 g/dl (3.3-4.9); ALBUMIN/GLOBULIN RATIO 1.11; BILIRUBIN,INDIRECT 0.3 mg/dl (0-1.1); BILIRUBIN,TOTAL 0.3 mg/dl (0.2-1.3); CALCIUM 8.9 mg/dl (8.4-10.2); CREATININE 0.93 mg/dl (0.61-1.24); TOTAL PROTEIN 7.2 g/dl (6.1-8.1)
--- NOTE | 2017-09-27 09:36 | RADRPT ---
PROCEDURE: CT abdomen and pelvis without contrast. CLINICAL INDICATION: Abdominal pain. TECHNIQUE: CT scan of the abdomen and pelvis without contrast was performed on the multislice CT s Tomo Clases. No intravenous contrast was administered. 3-D sagittal and coronal reformatted images were obtained from the axial source images. One or more of the following post reduction techniques were used: - Automated exposure control. - Adjustment of the mA and/or Kv according to patient's size. - Use of iterative reconstruction technique DLP 833.00 mGycm. CTDI vol 14.18 mGy COMPARISON: CT 01/26/2016 FINDINGS: The lung bases are clear. Evaluation of the solid organs is limited due to lack of intravenous contrast. The liver, spleen, adrenal glands, pancreas, gallbladder are normal. The kidneys are normal in size with no evidence of hydronephrosis. No kidney stones are visualized. Multiple hyperdense cysts in the left kidney measuring up to 1.5 cm, stable compared to prior study . Exophytic 1.2 cm cyst in the right kidney Mild aortoiliac atherosclerosis without ectasia. No ascites or retroperitoneal adenopathy. There is no free air or fluid. There is no bowel obstruction. Appendix is unremarkable. The urinary bladder is normal. No pelvic masses or pelvic lymphadenopathy seen. There is no acute osseous abnormality. RPTAT: AA IMPRESSION: No acute CT findings in the abdomen or pelvis. Multiple hyperdense left renal cysts, stable compared to prior exams. Further evaluation with dedica jhonny non-emergent ultrasound may be obtained. Physician Diane Date Time Electronically viewed and signed by Physician Diane on 09/27/2017 09:35 [facility]/
[2017-09-27 09:47] LABS: POTASSIUM 4.1 mmol/L (3.5-5.1)
[2017-09-27] MEDS ORDERED: METR500T PO (10:43)
[2017-09-27] MEDS ORDERED: CIPR500T4 PO (10:43)
[2017-09-27 11:51] VITALS: BP 125/67; PULSE 81; RESP 17; TEMP 98.6
== END 2017-09-27 11:52 | disposition home or self-care (01) ==
LOC: FTE 07:36
DX: K92.1 Melena (principal); Z87.891 Personal history of nicotine dependence
CPT/HCPCS: 36415; 74176; 80053; 81003; 82270; 83690; 85025; 99285; J7030

== ENCOUNTER 2018-03-30 12:00 | Emergency (ER) | END 2018-03-30 12:58 | disposition home or self-care (01) ==

== ENCOUNTER 2018-04-14 10:04 | Emergency (ER) | END 2018-04-14 10:26 | disposition home or self-care (01) ==

== ENCOUNTER 2018-08-24 13:31 | Emergency (ER) | END 2018-08-24 15:31 | disposition home or self-care (01) ==

== ENCOUNTER 2018-08-31 02:46 | Emergency (ER) | END 2018-08-31 05:39 | disposition home or self-care (01) ==

== ENCOUNTER 2019-02-21 15:57 | Emergency (ER) | payer OTHER ==
[~2019-02-21] VITALS: Ht 167.6 cm; Wt 60.0 kg
[~2019-02-21 15:57] MED LIST changes: +BACI28.421 TOP; +BACITUD TOP; +CIPR500T4 PO; +CLOT113C TOP; +HYDR-4011 PO; -HYDR-906 PO; -IBUP800T25 PO; +IBUP800T48 PO; +METR500T PO; -NAPR-260 PO; +NAPR-985 PO; +NEVI200T PO; -[UNRECOGNIZED DRUG - CODE] PO
[2019-02-21 16:01] VITALS: BP 136/74; PULSE 90; RESP 18; Ht 167.6 cm; Wt 60.0 kg
[2019-02-21] MEDS ORDERED: ALBUTEROL 0.083% (NEB) 2.5 MG/3 ML AMP HHN STA (16:09)
[2019-02-21] MEDS ORDERED: NALO4SPR NS (16:14)
[2019-02-21] MEDS ORDERED: ALBU8.5H8 INH (16:14)
[2019-02-21] MEDS ORDERED: predniSONE 20 MG TAB PO ONE (16:30)
--- NOTE | 2019-02-21 18:31 | ERD ---
ER Documentation Chief Complaint Chief Complaint has scabies complaining of allergic reaction HPI 63-year-old man complaining of an allergic reaction shortly after discharge from [facility]. It seems recently he was given a prescription for permethrin and states he used it recently and felt like he was having an allergic reaction with full body itching. He does have a history of chronic pain syndrome and opioid dependence as well as psychiatric illness and homelessness. Patient denies suicidal homicidal ideation, no fevers or chills, no vomiting or diarrhea, no chest pain or shortness of breath. ROS All systems reviewed and are negative except as per history of present illness. Medications Home Meds Active Scripts Naloxone HCl nasal spray (Narcan 4 mg/0.1 mL nasal) 4 Mg [place], 4 MG NS .Q2-3MIN for OPIOID OVERDOSE, #2 SPRAY 0 Refills [place] 0.1 mL into one nostril. Repeat with second device into other nostril after 2-3 minutes if no or minimal response Prov:PATRICIA BROWN MD 02/21/19 Albuterol Sulfate* (Proair HFA*) 8.5 Gm Hfa.aer.ad, 2 PUFF INH Q4, #1 INHALER Prov:PATRICIA BROWN MD 02/21/19 Clotrimazole (Antifungal) 113 Gm Cream.gm., 1 APPLIC TOP BID for 10 Days, TUB Prov:AMANDA SESAY PA-C 04/14/18 Cephalexin* (Keflex*) 500 Mg Capsule, 500 MG PO QID for 7 Days, CAP Prov:AMANDA SESAY PA-C 04/14/18 Bacitracin-Polymyxin* (Double Antibiotic Oint*) 28.4 Gm Oint...g., 1 APPLIC TOP TID for 7 Days, EA Prov:AMANDA SESAY PA-C 04/14/18 Sulfamethoxazole/Trimethoprim* (Bactrim Ds* Tablet) 1 Each Tablet, 1 TAB PO BID, #14 TAB Prov:AMANDA SESAY PA-C 04/14/18 Naproxen* (Naprosyn*) 500 Mg Tablet, 500 MG PO BID PRN for PAIN AND/OR INFLAMMATION, #30 TAB Prov:LOKI DAVIS PA-C 03/31/18 Bacitracin* (Bacitracin Oint (UD)*) 1 Applic Oint, 1 APPLIC TOP ONCE, #15 PKT APPLY TO Prov:YOU DOMINGUEZAjay BANKS-C 03/30/18 Sulfamethoxazole/Trimethoprim* (Bactrim Ds* Tablet) 1 Each Tablet, 1 TAB PO BID for 7 Days, #14 TAB Prov:YOU DOMINGUEZAjay BANKS-C 03/30/18 Cephalexin* (Keflex*) 500 Mg Capsule, 500 MG PO QID for 7 Days, CAP Prov:OYU DOMINGUEZAjay BANKS-C 03/30/18 Metronidazole* (Flagyl*) 500 Mg Tablet, 500 MG PO TID for 10 Days, TAB Prov:KASSANDRA STROUD NP 09/27/17 Ciprofloxacin Hcl* (Ciprofloxacin Hcl*) 500 Mg Tablet, 500 MG PO BID for 10 Days, TAB Prov:KASSANDRA STROUD NP 09/27/17 Sulfamethoxazole/Trimethoprim* (Bactrim Ds* Tablet) 1 Each Tablet, 1 TAB PO BID for 5 Days, TAB Prov:TONY SALINAS PA-C 04/22/17 Sulfamethoxazole/Trimethoprim* (Bactrim Ds* Tablet) 1 Each Tablet, 1 TAB PO DAILY, #7 TAB Prov:TONY SALINAS PA-C 04/22/17 Cephalexin* (Keflex*) 500 Mg Capsule, 500 MG PO QID for 5 Days, CAP Prov:TONY SALINAS PA-C 04/22/17 Hydrocodone/Acetaminophen (Hornick 5-325 Tablet) 1 Each Tablet, 1 TAB PO Q6H PRN for SEVERE PAIN LEVEL 7-10, #20 TAB Prov:RACHAEL BAKER NP 03/29/17 Cephalexin* (Keflex*) 500 Mg Capsule, 500 MG PO QID for 10 Days, CAP Prov:RACHAEL BAKER NP 03/29/17 Sulfamethoxazole/Trimethoprim* (Bactrim Ds* Tablet) 1 Each Tablet, 1 TAB PO BID, #20 TAB Prov:RACHAEL BAKER NP 03/29/17 Ibuprofen* (Motrin*) 800 Mg Tab, 800 MG PO Q6H PRN for PAIN AND OR ELEVATED TEMP, #30 TAB Prov:ERICKSON GUTHRIE 03/26/17 Acetaminophen* (Tylophen*) 500 Mg Capsule, 1 CAP PO Q6H PRN for PAIN AND OR E LEVATED TEMP, #30 CAP Prov:YOU DOMINGUEZ PA-C 03/15/17 Naproxen* (Naprosyn*) 500 Mg Tablet, 500 MG PO BID PRN for PAIN AND/OR INFLAMMATION, #30 TAB Prov:YOU DOMINGUEZ PA-C 03/15/17 Cephalexin* (Keflex*) 500 Mg Capsule, 500 MG PO QID for 5 Days, CAP Prov:RACHAEL BAKER FIRE ALARM OPERATOR 02/16/17 Ibuprofen* (Motrin*) 600 Mg Tab, 600 MG PO Q6H PRN for PAIN AND OR ELEVATED TEMP, #30 TAB Prov:RACHAEL BAKER FIRE ALARM OPERATOR 02/16/17 Reported Medications Hydrocodone Bit-Acetaminophen* (Hornick*) 7.5-325 Tablet, 1 TAB PO BID PRN for PAIN, TAB 03/06/16 Nevirapine* (Viramune*) 200 Mg Tablet, 200 MG PO BID, TAB 03/06/16 Lamivudine-Zidovudine* (Combivir*) 150-300 Mg Tablet, 1 TAB PO BID, TAB 03/06/16 Allergies Allergies: Coded Allergies: No Known Allergy (Unverified , 03/06/16) PMhx/Soc Chronic pain syndrome, opioid dependence, HIV, psychiatric illness Medical and Surgical Hx: pt denies Medical Hx, pt denies Surgical Hx History of Surgery: Yes (inguinal sx) Anesthesia Reaction: No Hx Neurological Disorder: No Hx Respiratory Disorders: No Hx Cardiac Disorders: No Hx Psychiatric Problems: No Hx Miscellaneous Medical Probl: Yes (HIV) Hx Alcohol Use: Yes Hx Substance Use: Yes (marijuana) Hx Tobacco Use: Yes Smoking Status: Current every day smoker FmHx Family History: No diabetes Physical Exam Vitals Vital Signs Date Temp Pulse Resp B/P (MAP) Pulse Ox O2 O2 Flow FiO2 Time Delivery Rate 02/21/19 97.7 90 18 136/74 99 16:01 (94) Physical Exam Const: No acute distress, afebrile Head: Atraumatic Eyes: Normal Conjunctiva ENT: Normal External Ears, Nose and Mouth. Neck: Full range of motion. No meningismus. Resp: Clear to auscultation bilaterally Cardio: Regular rate and rhythm, no murmurs Abd: Soft, non tender, non distended. Normal bowel sounds Skin: No petechiae or rashes Back: No midline or flank tenderness Ext: No cyanosis, or edema Neur: Awake and alert 3, no focal deficits or facial asymmetry, gait normal Psych: Normal Mood and Affect Results 24 hrs Current Medications Medications Dose Sig/Yumi Start Time Status Last (Trade) Ordered Route PRN Stop Time Admin Dose Reason Admin Prednisone 40 mg ONCE ONCE 02/21/19 DC 02/21/19 (Prednisone) PO 16:30 02/21/19 16:30 16:31 Albuterol 5 mg ONCE STAT 02/21/19 DC 02/21/19 (Proventil HHN 16:09 02/21/19 16:31 0.083% (Neb)) 16:10 Procedures/MDM Given the patient's overall concern I administered prednisone 40 mg p.o. and albuterol 5 mg via nebulizer. Patient has no signs or symptoms of allergic reaction and no signs of active scabies. He was recently given multiple referrals for homelessness from [facility] and has been there at least twice over the last 48 hours. Differential diagnoses considered, included but not limited to acute coronary syndrome, pulmonary embolism, aortic dissection, abdominal aortic aneurysm, sepsis, stroke, meningitis, encephalitis, pneumonia, appendicitis, cholecystitis, bowel obstruction, pyelonephritis, nephrolithiasis, cystitis, as well as metabolic, hematologic, and electrolyte abnormalities. As well as abscess, cellulitis, fractures, and dislocations. Patient feels much better at this time, and vital signs are normal, symptoms have improved. I did give strict instructions to return to the ED if symptoms continue or worsen, patient will otherwise follow-up with primary care physician. Patient understood instructions and agreed to plan. Disclaimer: Inadvertent spelling and grammatical errors are likely due to E HR/dictation software use and do not reflect on the overall quality of patient care. Also, please note that the electronic time recorded on this note does not necessarily reflect the actual time of the patient encounter. Departure Diagnosis: Primary Impression: Allergic reaction Encounter type: initial encounter Qualified Codes: T78.40XA - Allergy, unspecified, initial encounter Condition: Good Patient Instructions: Allergic Reaction, Drug PATRICIA BROWN MD Feb 21, 2019 18:31
== END 2019-02-21 17:17 | disposition home or self-care (01) ==
LOC: E/R 15:57
DX: L29.9 Pruritus, unspecified (principal); T37.8X5A Adverse effect of other specified systemic anti-infectives and antiparasitics, initial encounter; F17.210 Nicotine dependence, cigarettes, uncomplicated; R06.02 Shortness of breath; Z21 Asymptomatic human immunodeficiency virus [HIV] infection status
CPT/HCPCS: 99283; J7512

== ENCOUNTER 2019-07-12 03:21 | Emergency (ER) | payer OTHER ==
[~2019-07-12] VITALS: Ht 177.8 cm; Wt 78.6 kg
[~2019-07-12 03:21] MED LIST changes: +ALBU18HF INHALATION; +ALBU8.5H8 INH; -BACI28.421 TOP; +BACI28.431 TOP; +FAMO-96 PO; +NALO4SPR NS
[2019-07-12 03:25] VITALS: Ht 177.8 cm; Wt 78.6 kg
[2019-07-12] MEDS ORDERED: ONDANSETRON 4 MG INJ IV STA (04:15)
[2019-07-12 07:12] VITALS: BP 137/84; PULSE 56; RESP 18
== END 2019-07-12 07:17 | disposition home or self-care (01) ==
LOC: FTE 03:21
DX: R06.02 Shortness of breath (principal); R10.9 Unspecified abdominal pain; J44.9 Chronic obstructive pulmonary disease, unspecified; I50.9 Heart failure, unspecified; F17.210 Nicotine dependence, cigarettes, uncomplicated; Z21 Asymptomatic human immunodeficiency virus [HIV] infection status
CPT/HCPCS: 36415; 71045; 80053; 83880; 85025; 93005; 96374; 99285; J2405